=== PATIENT | female | born 1930 | race Caucasian/White ===

== ENCOUNTER 2017-08-09 12:22 | Emergency (ER) | payer MEDICARE, OTHER ==
[~2017-08-09] VITALS: Ht 152.4 cm; Wt 60.0 kg
[2017-08-09 12:27] VITALS: Ht 152.4 cm; Wt 60.0 kg
[2017-08-09] MEDS ORDERED: LIDOCAINE 1%/EPI 30 ML INJ INJ STA (12:50)
--- NOTE | 2017-08-09 12:50 | ERD ---
ER Documentation Chief Complaint Chief Complaint MECHANICAL FALL LAC TO HEAD HPI Patient is a 87-year-old female who presents after a witnessed ground-level mechanical fall at her longterm with injury to her head. There is no report of loss of consciousness or vomiting. There is no report of other injury. There is no report of any physical complaint prior to the episode. History is limited due to patient's underlying dementia. On further history from the longterm, the patient was noted to fall backwards in her chair while she was reaching to pet a dog. ROS All systems reviewed and are negative except as per history of present illness. Medications Home Meds Reported Medications Acetaminophen* (Acetaminophen*) 500 MG Extra Strength Tablet, 1000 MG PO QHS Y for PAIN AND OR ELEVATED TEMP, TAB 08/09/17 Trazodone Hcl* (Trazodone Hcl*) 50 Mg Tablet, 50 MG PO Q8 Y for SLEEP, #60 TAB 08/09/17 Memantine* (Namenda* XR) 28 Mg Cap.spr.24, 28 MG PO DAILY, #30 TAB 08/09/17 Loratadine* (Loratadine*) 10 Mg Tablet, 10 MG PO DAILY, #30 TAB 08/09/17 Levothyroxine Sodium* (Levoxyl*) 150 Mcg Tablet, 150 MCG PO WED,AND THU, #30 TAB 08/09/17 Levothyroxine Sodium* (Levoxyl*) 125 Mcg Tablet, 125 MCG PO MON,TUE,THUR,FRI,SAT , #30 TAB 08/09/17 Donepezil* (Donepezil*) 5 Mg Tablet, 5 MG PO QHS, #30 TAB 08/09/17 Cyanocobalamin* (Vitamin B12*) 500 Mcg Tab, 500 MCG PO DAILY, TAB 08/09/17 Cholecalciferol (Vitamin D3) (VITAMIN D-3) 2,000 Unit Capsule, 2000 UNIT PO DAILY, CAP 08/09/17 Celecoxib* (Celebrex*) 100 Mg Capsule, 100 MG PO BID, CAP 08/09/17 Salmeterol Xinaf/Fluticasone* (Advair*) 250-50 Diskus Inhaler, 1 INH INHALATION BID, #1 INHALER 08/09/17 Allergies Allergies: Coded Allergies: Sulfa (Sulfonamide Antibiotics) (Verified Allergy, Unknown, 11/26/17) PMhx/Soc Past medical history: Dementia, hypothyroidism Past surgical history: Unable to obtain Social history: Lives in longterm, reports occasional prior tobacco Medical and Surgical Hx: pt denies Medical Hx, pt denies Surgical Hx Hx Alcohol Use: No Hx Substance Use: No Hx Tobacco Use: No Smoking Status: Never smoker FmHx Noncontributory Physical Exam Vitals Vital Signs Date Time Temp Pulse Resp B/P Pulse Ox O2 Delivery O2 Flow Rate FiO2 08/09/17 12:27 98.0 72 16 141/79 95 Physical Exam Const: Alert, no acute distress Head: Atraumatic, Left occipital laceration, approximately 3 cm, linear. Soft tissue hematoma. Eyes: Normal Conjunctiva ENT: Normal External Ears, Nose and Mouth. Mucous membranes moist Neck: Full range of motion. No midline tenderness Resp: Clear to auscultation bilaterally, No wheezes, no rales Cardio: Regular rate and rhythm, no murmurs Abd: Soft, non tender, non distended. Normal bowel sounds Skin: No petechiae or rashes Back: No midline or flank tenderness Ext: No cyanosis, or edema, No deformity or pain with ranging of joints. Neur: Awake and alert, Cranial nerves II through XII intact bilaterally, strength and sensation full in 4 extremities. Psych: Normal Mood and Affect Results 24 hrs Current Medications Medications (Trade) Dose Ordered Sig/Bianca Route PRN Reason Start Time Stop Time Status Last Admin Dose Admin Lidocaine/ Epinephrine (Xylocaine 1%/ Epi (Pf)) 30 ml ONCE STAT INJ 08/09/17 12:50 08/09/17 12:51 DC Procedures/MDM Laceration Repair by me: Anesthesia: 1% lidocaine with epinephrine locally Location: Left occiput Foreign body: None detected after copious irrigation and exploration Technique: Juan A 4 Complexity: No subcutaneous sutures/mucosal repair/ edge excision Post Closure Length: 3 cm Patient's bleeding was easily controlled in the department and there is no indication of anemia. No evidence of neurologic injury, vascular injury, or foreign body. Patient is appropriate for outpatient follow up. MDM: Patient is an 87-year-old female who had a mechanical fall from a chair with trauma to her head. CT of the head shows no acute injury. CT of the cervical spine shows no fracture but does show significant degenerative disease. The patient has a normal neurological examination. She has no midline tenderness. There are no other signs of injury and tertiary survey. The patient is not on blood thinners. Laceration was irrigated with copious saline and repaired with juan a 4. Instructions given for staple removal in 7 days. Tetanus is up-to-date per daughter. Departure Diagnosis: Primary Impression: Scalp laceration Encounter type: initial encounter Qualified Code: S01.01XA - Laceration of scalp, initial encounter Condition: Stable MARILEE PLASCENCIA MD Aug 09, 2017 12:50
[2017-08-09] MEDS ORDERED: ADV25050 INHALATION (12:52)
[2017-08-09] MEDS ORDERED: CELE100C PO (12:52)
[2017-08-09] MEDS ORDERED: CYAN500T46 PO (12:53)
[2017-08-09] MEDS ORDERED: CHOL200073 PO (12:53)
[2017-08-09] MEDS ORDERED: DONE5TAB7 PO (12:54)
[2017-08-09] MEDS ORDERED: LEVO125T71 PO (12:55)
[2017-08-09] MEDS ORDERED: LEVO150T64 PO (12:55)
[2017-08-09] MEDS ORDERED: LORA10TA3 PO (12:56)
[2017-08-09] MEDS ORDERED: MEMA28CA PO (12:56)
[2017-08-09] MEDS ORDERED: TRAZ50TA18 PO (12:57)
[2017-08-09] MEDS ORDERED: ACET-141 PO (12:57)
--- NOTE | 2017-08-09 13:17 | RADRPT ---
PROCEDURE: XR Chest. CLINICAL INDICATION: Chest pain TECHNIQUE: Single frontal view of the chest was obtained. COMPARISON: None FINDINGS: The heart is within normal limits. The thoracic aorta is calcified. There are mild bilateral lower lobe linear atelectatic changes. The lungs are otherwise clear. There is no pleural effusion or pneumothorax. RPTAT: AA IMPRESSION: Mild bilateral lower lobe linear atelectatic changes. Calcified aorta consistent with atherosclerotic disease. .Christo Ellison MD, MD Date Time Electronically viewed and signed by .Christo Ellison MD, on 08/09/2017 13:17 .S/
--- NOTE | 2017-08-09 13:39 | RADRPT ---
PROCEDURE: CT brain without IV contrast. CLINICAL INDICATION: Headache/trauma. TECHNIQUE: CT examination of the brain was performed on a 64-slice multidetector scanner. The pat ient was examined without IV contrast. Sagittal and coronal reformatted images were made. The imag es were reviewed on a PACS workstation. DICOM images are available. Total radiation dose: Total CTDIvol: 44.9 mGy. Total DLP: 720 mGy-cm. One or more of the followin g dose reduction techniques were used: automated exposure control, adjustment of the mA and/or kV ac cording to patient size, or use of iterative reconstruction technique COMPARISON: None available. FINDINGS: There is mild cerebral atrophy. There is mild periventricular low density white matter changes, lik ekaterina microvascular ischemic changes. The south/white matter differentiation is well preserved. There is no other abnormal intra-axial high, low density lesion, suggesting tumor, infarct, bleeding, av malformation or inflammatory mass. No subdural or epidural hematoma. The visualized paranasal sinuses and mastoid air cells are clear. The orbits are unremarkable. The calvarium is intact. There is mild left parietal scalp swelling . IMPRESSION: 1. Mild cerebral atrophy. 2. Mild periventricular low density white matter changes, likely microvascular ischemic changes. RPTAT: GG .Jack Aquino MD, MD Date Time Electronically viewed and signed by .Jack Aquino MD, on 08/09/2017 13:39 .Y/
--- NOTE | 2017-08-09 14:04 | RADRPT ---
PROCEDURE: CT cervical spine without contrast. CLINICAL INDICATION: Neck trauma/injury, fall TECHNIQUE: CT of the cervical spine without contrast was performed on a multidetector CT scanner, w ith multiplanar reformats. One or more of the following dose reduction techniques were used: Automa aden exposure control, adjustment in mA and / or kV according to patient size, use of iterative recon structive technique. CTDIvol = 22 mGy and DLP = 520 mGy-cm. DICOM images are available. COMPARISON: None available. FINDINGS: There is generalized osteopenia. No acute fracture or dislocation is identified. There is a chronic corticated defect in the posterior arch of C1 which may be developmental, versus post-traumatic. Th ere is reversal of the lordosis of the upper - mid cervical spine. Trace anterolisthesis at C2-3 an d C7-T1, and trace retrolisthesis at C4-5 are seen. The vertebral bodies are maintained in height. There are atlantoaxial joint degenerative changes. There are multilevel anterior osteophytes. The re is disc space narrowing, severe at C4-5, moderate to severe at C3-4, mild-moderate at C2-3 , C5-6 and C6-7. Additional findings by levels: C2-3: Posterior disk/osteophyte and ligamentum flavum hypertrophy. Mild to moderate central canal st enosis. Uncovertebral osteophytes and facet arthropathy with severe right foraminal narrowing. C3-4: Posterior disk/osteophyte with mild central canal stenosis. Uncovertebral osteophytes and fa cet arthropathy with severe right, mild-moderate left foraminal narrowing. C4-5: Posterior disk/osteophyte with moderate - severe central canal stenosis. Uncovertebral osteo phytes and facet arthropathy with severe bilateral foraminal narrowing. C5-6: Posterior disk/osteophyte with mild - moderate central canal stenosis. Uncovertebral osteoph ytes and facet arthropathy with moderate - severe bilateral foraminal narrowing. C6-7: Posterior disk/osteophyte with mild - moderate central canal stenosis. Uncovertebral osteop hytes and facet arthropathy with mild - moderate bilateral foraminal narrowing C7-T1: Facet arthropathy. No acquired central canal stenosis identified. IMPRESSION: 1. No acute fracture/dislocation identified. 2. Chronic corticated defect at the posterior arch of C1 which may be developmental versus post-tra umatic. 3. Cervical spondylosis/degenerative enthesopathy as described above, with reversal of the cervical lordosis. 4. Central canal stenosis, moderate - severe at C4-5, mild - moderate at C2-3, C5-6 and C6-7, mild at C3-4. 5. Significant multilevel foraminal narrowing detailed above. 6. Osteopenia. RPTAT: HH .Mateus Rain MD, Date Time Electronically viewed and signed by .Mateus Rain MD, MD on 08/09/2017 14:04 .O/
== END 2017-08-09 15:59 | disposition home or self-care (01) ==
LOC: E/R 12:22
DX: S01.01XA Laceration without foreign body of scalp, initial encounter (principal); E03.9 Hypothyroidism, unspecified; W18.39XA Other fall on same level, initial encounter; Y92.9 Unspecified place or not applicable
CPT/HCPCS: 70450; 71010; 72125

== ENCOUNTER 2018-09-25 08:41 | Inpatient (IN) | payer MEDICARE, OTHER ==
[~2018-09-25] VITALS: Ht 165.1 cm; Wt 75.9 kg
[~2018-09-25 08:41] MED LIST: ACET-141 PO; ADV25050 INHALATION; CELE100C PO; CHOL200073 PO; CYAN500T46 PO; DONE5TAB7 PO; LEVO125T71 PO; LEVO150T64 PO; LORA10TA3 PO; MEMA28CA PO; TRAZ-111 PO
[2018-09-25 08:46] VITALS: Ht 165.1 cm; Wt 75.9 kg
[2018-09-25] MEDS ORDERED: CEFEPIME 2GM/50 ML (PMX) 50 ML IVPB STA (08:47)
[2018-09-25] MEDS ORDERED: SODIUM CHLORIDE 0.9% 1L BAG IV* STA (08:47)
[2018-09-25] MEDS ORDERED: ALBUTEROL 0.5% (NEB) 2.5 MG/0.5 ML AMP INH STA (08:47)
[2018-09-25] MEDS ORDERED: IPRATROPIUM (NEB) 0.5 MG/2.5 ML AMP INH STA (08:47)
[2018-09-25] MEDS ORDERED: METHYLPREDNISOLONE 125 MG INJ IV STA (08:47)
[2018-09-25] MEDS ORDERED: VANCOMYCIN 1 GM (PMX) 250 ML IVPB ONE (09:00)
[2018-09-25] MEDS ORDERED: LORA10TA3 PO (10:22)
[2018-09-25] MEDS ORDERED: CELE100C PO (10:22)
[2018-09-25] MEDS ORDERED: LORA0.5T PO (10:23)
[2018-09-25] MEDS ORDERED: MULTI PO (10:23)
[2018-09-25] MEDS ORDERED: ACET325T45 PO (10:24)
[2018-09-25] MEDS ORDERED: ASPI-817 PO (10:26)
[2018-09-25] MEDS ORDERED: LEVO150T7 PO (10:26)
[2018-09-25] MEDS ORDERED: LEVO125T7 PO (10:26)
[2018-09-25] MEDS ORDERED: TRAZ-111 PO (10:27)
[2018-09-25] MEDS ORDERED: ACETAMINOPHEN 325 MG TAB PO PRN (11:30)
[2018-09-25] MEDS ORDERED: ONDANSETRON 4 MG INJ IV PRN ×2 (11:30→12:30)
--- NOTE | 2018-09-25 11:43 | ERD ---
ER Documentation Chief Complaint Chief Complaint SOB, Hypoxic wheezing since this morning HPI This is an 88-year-old female who presented to the emergency department by EMS from [facility] with a known history of COPD, hypertension, hypothyroidism. The patient is a DO NOT RESUSCITATE with comfort measures only. This morning upon awakening the patient developed severe difficulty breathing with wheezing. There was no emesis. EMS administered 2.5 mg of albuterol the patient was hypoxic at roughly 89%. This had improved her symptoms. No further history is available. ROS All systems reviewed and are negative except as per history of present illness. Medications Home Meds Reported Medications Trazodone Hcl* (Trazodone Hcl*) 50 Mg Tablet, 25 MG PO QHS, #30 TAB 09/25/18 Aspirin* (Aspirin* EC) 81 Mg Tablet.dr, 81 MG PO DAILY, TAB 09/25/18 Levothyroxine Sodium* (Levothyroxine Sodium*) 150 Mcg Tablet, 150 MCG PO BEFORE BREAKFAST, #30 TAB Q THU-Thu09/25/18 Levothyroxine Sodium* (Levothyroxine Sodium*) 125 Mcg Tablet, 125 MCG PO BEFORE BREAKFAST, #30 TAB Q [id number] 09/25/18 Acetaminophen* (Acetaminophen*) 325 Mg Tablet, 325 MG PO Q6H PRN for PAIN AND OR ELEVATED TEMP, #30 TAB 09/25/18 Multivitamins* (Theragran*) 1 Tab Tab, 1 TAB PO DAILY, TAB 09/25/18 Lorazepam* (Lorazepam*) 0.5 Mg Tablet, 0.25 MG PO HS PRN for ANXIETY, TAB 09/25/18 Loratadine* (Loratadine*) 10 Mg Tablet, 10 MG PO DAILY, #30 TAB 09/25/18 Celecoxib* (Celebrex*) 100 Mg Capsule, 100 MG PO BID, CAP 09/25/18 Discontinued Reported Medications Acetaminophen* (Acetaminophen*) 500 MG Extra Strength Tablet, 1000 MG PO QHS PRN for PAIN AND OR ELEVATED TEMP, TAB 08/09/17 Trazodone Hcl* (Trazodone Hcl*) 50 Mg Tablet, 50 MG PO Q8 PRN for SLEEP, #60 TAB 08/09/17 Memantine* (Namenda* XR) 28 Mg Cap.spr.24, 28 MG PO DAILY, #30 TAB 08/09/17 Loratadine* (Loratadine*) 10 Mg Tablet, 10 MG PO DAILY, #30 TAB 08/09/17 Levothyroxine Sodium* (Levoxyl*) 150 Mcg Tablet, 150 MCG PO WED,AND SUN, #30 TAB 08/09/17 Levothyroxine Sodium* (Levoxyl*) 125 Mcg Tablet, 125 MCG PO MON,TUE,THUR, FRI,SAT, #30 TAB 08/09/17 Donepezil* (Donepezil*) 5 Mg Tablet, 5 MG PO QHS, #30 TAB 08/09/17 Cyanocobalamin* (Vitamin B12*) 500 Mcg Tab, 500 MCG PO DAILY, TAB 08/09/17 Cholecalciferol (Vitamin D3) (VITAMIN D-3) 2,000 Unit Capsule, 2000 UNIT PO DAILY, CAP 08/09/17 Celecoxib* (Celebrex*) 100 Mg Capsule, 100 MG PO BID, CAP 08/09/17 Salmeterol Xinaf/Fluticasone* (Advair*) 250-50 Diskus Inhaler, 1 INH INHALATION BID, #1 INHALER 08/09/17 Allergies Allergies: Coded Allergies: Sulfa (Sulfonamide Antibiotics) (Verified Allergy, Unknown, 09/25/18) PMhx/Soc History of Surgery: Yes (Lt Mastectomy) Hx Neurological Disorder: Yes (Dementia, CVA) Hx Cardiac Disorders: Yes (HTN) Hx Miscellaneous Medical Probl: Yes (DM, GERD) Hx Alcohol Use: No Hx Substance Use: No Hx Tobacco Use: No Smoking Status: Never smoker Physical Exam Vitals Vital Signs Date Temp Pulse Resp B/P (MAP) Pulse Ox O2 O2 Flow FiO2 Time Delivery Rate 09/25/18 106 24 100 Simple 6.0 08:56 Mask 09/25/18 Simple 6 08:56 Mask 09/25/18 105 21 161/99 99 Mask 6.0 08:53 (119) 09/25/18 98.8 101 22 161/99 100 08:46 (119) Physical Exam Constitutional:Well-developed. Well-nourished. Patient in severe respiratory distress HEENT:Normocephalic. Atraumatic.Pupils were equal round reactive to light. Moist mucous membranes.No tonsillar exudates. Neck: No nuchal rigidity. No lymphadenopathy. No posterior cervical spine tenderness or step-offs. Respiratory: Tachypneic. Using accessory muscles of respiration. Wheezing on end auscultation bilaterally Cardiovascular: Regular rate regular rhythm.No murmurs. No rubs were appre ciated.S1, S2 normal. Distal pulses are palpable 2+ bilaterally. GI: Abdomen was soft. Nontender. Non Distended. No pulsatile abdominal masses or bruits. No rebound. No guarding. Bowel sounds were present and normal. Muscle skeletal: Full range of motion of both the upper extremities. Patient does not move lower extremities against gravity..No assymetrical calf tenderness or swelling. Skin: No petechia, no purpura. No lesions on the palms or the soles of the feet. No maculopapular rash. NEURO: Patient was alert, awake, orientated to person but not to place or time. Patient does not follow verbal command. Gait not observed. Result Diagram: 09/25/1892309/25/1824 Results 24 hrs Laboratory Tests Test 09/25/18 09:24 09/25/18 09:37 White Blood Count 15.8 10^3/ul Red Blood Count 4.49 10^6/ul Hemoglobin 13.4 g/dl Hematocrit 42.3 % Mean Corpuscular Volume 94.2 fl Mean Corpuscular Hemoglobin 29.8 pg Mean Corpuscular Hemoglobin Concent 31.7 g/dl Red Cell Distribution Width 13.7 % Platelet Count 277 10^3/UL Mean Platelet Volume 11.4 fl Immature Granulocytes % 1.000 % Neutrophils % 79.3 % Lymphocytes % 13.1 % Monocytes % 6.1 % Eosinophils % 0.1 % Basophils % 0.4 % Nucleated Red Blood Cells % 0.0 /100WBC Immature Granulocytes # 0.160 10^3/ul Neutrophils # 12.5 10^3/ul Lymphocytes # 2.1 10^3/ul Monocytes # 1.0 10^3/ul Eosinophils # 0.0 10^3/ul Basophils # 0.1 10^3/ul Nucleated Red Blood Cells # 0.0 10^3/ul Prothrombin Time 13.1 Sec Prothrombin Time Ratio 1.0 INR International Normalized Ratio 0.98 Activated Partial Thromboplast Time 29.1 Sec Sodium Level 140 mmol/L Potassium Level 4.1 mmol/L Chloride Level 101 mmol/L Carbon Dioxide Level 35 mmol/L Anion Gap 4 Blood Urea Nitrogen 16 mg/dl Creatinine 0.83 mg/dl Est Glomerular Filtrat Rate mL/min mL/min Glucose Level 152 mg/dl Calcium Level 10.2 mg/dl Total Bilirubin 0.4 mg/dl Direct Bilirubin 0.00 mg/dl Indirect Bilirubin 0.4 mg/dl Aspartate Amino Transf (AST/SGOT) 30 IU/L Alanine Aminotransferase (ALT/SGPT) 21 IU/L Alkaline Phosphatase 139 IU/L Troponin I 0.031 ng/ml Total Protein 7.8 g/dl Albumin 3.8 g/dl Globulin 4.00 g/dl Albumin/Globulin Ratio 0.95 Amylase Level 36 U/L Lipase 12 U/L POC Venous Lactate 1.7 mmol/L Current Medications Medications Dose Sig/Bianca Start Time Status Last (Trade) Ordered Route PRN Stop Time Admin Dose Reason Admin Sodium 2,400 ml BOLUS OVER 2 09/25/18 DC 09/25/18 Chloride HOURS STAT 08:47 09:45 (NS) IV* 09/25/18 08:52 Cefepime HCl 50 ml @ ONCE STAT 09/25/18 DC 09/25/18 100 mls/hr IVPB 08:47 09:44 09/25/18 09:16 Vancomycin 250 ml @ ONCE ONCE 09/25/18 DC 09/25/18 HCl 125 mls/hr IVPB 09:00 09:45 09/25/18 10:59 Albuterol 10 mg ONCE STAT 09/25/18 DC 09/25/18 (Proventil INH 08:47 08:55 0.5% (Neb)) 09/25/18 08:52 Ipratropium 1 mg ONCE STAT 09/25/18 DC 09/25/18 Deary INH 08:47 08:56 (Atrovent 09/25/18 08:52 0.02% (Neb)) 125 mg ONCE STAT 09/25/18 DC 09/25/18 Methylprednis IV 08:47 09:45 olone Sodium 09/25/18 08:52 Succinate (Solu-Medrol) Ondansetron 4 mg BRIDGE ORDER 09/25/18 HCl (Zofran PRN IV 11:30 Inj) NAUSEA AND/OR 09/26/18 11:29 VOMITING 650 mg ER BRIDGE 09/25/18 Acetaminophen PRN PO MILD 11:30 (Tylenol PAIN(1-3)OR 09/26/18 11:29 Tab) ELEVATED TEMP Procedures/MDM The patient presented to the emergency department with dyspnea. My differential diagnosis included but was not limited to upper airway obstruction, CHF, pulmonary embolism, cardiac ischemia, pneumonia, pneumothorax, anemia, drug overdose, pulmonary edema, COPD or asthma. The patient was admitted placed on continuous albuterol Atrovent 125 mg of Solu- Medrol. Her symptoms had significantly improved. She still had wheezing bilaterally but was not using accessory muscles of respiration. 12 Lead EKG tracing ordered and reviewed by myself showed: Sinus tachycardia 101 bpm and no arrhythmia. LA interval normal. QRS duration normal. No ST segment elevation No ST segment depression. No changes consistent with acute ischemia. The patient with leukocytosis with white blood count of 15.8. There is no other severe electrolyte abnormalities. With the patient initially arrived I did feel that the patient was going to meet sepsis criteria however her lactic acid was normal. I had already administered antibiotics which included vancomycin and cefepime. Blood cultures and urine cultures have been obtained prior to arrival. An indwelling [place] catheter was placed as the patient is bedbound and will require admission. The patient was admitted in serious condition to the spitalist. She will go to the medical surgical floor given that she is a DO NOT RESUSCITATE with comfort measures only Critical Care: Time: 40 minutes Treatments/Evaluations: Close monitoring and treatment of unstable vital signs, cardiorespiratory, and neurologic status, while maintaining tight balance of fluid, respiratory, and cardiac interventions. Time does not include performing any of the above billable procedures. Departure Diagnosis: Primary Impression: COPD exacerbation Condition: Serious CARLINE MELO MD Sep 25, 2018 11:39
[2018-09-25 12:18] VITALS: BP 143/67; PULSE 102; RESP 16
[2018-09-25] MEDS ORDERED: NACL 0.9% 3 ML SYG IV SCH (12:30)
[2018-09-25] MEDS: SOD CHLORIDE 0.9% 1,000 ML IV SCH (13:09)
--- NOTE | 2018-09-25 13:45 | HP ---
Date/Time of Note Date/Time of Note DATE: 09/25/18 TIME: 13:45 Assessment/Plan VTE Prophylaxis Pharmacological prophylaxis: LMWH Lines/Catheters IV Catheter Type (from [facility]): Peripheral IV Assessment/Plan Hospital Course 88-year-old female with comorbidities including COPD, dementia, and hypothyroidism, who was brought in from an assisted living facility because of dyspnea with evidence of underlying sepsis and acute respiratory failure, who will be admitted to inpatient setting for further treatment and evaluation. 1. Sepsis with leukocytosis and tachycardia, present on admission secondary to underlying urinary tract infection and suspected tracheobronchitis. -Start empiric antibiotics including coverage for anaerobes since there is likelihood of aspiration pneumonitis. -Send samayoa cultures. -Judicious use of IV fluids. 2. Acute respiratory failure. -Hypoxic. -Continue inhaled bronchodilators. -Continue tapering dose of steroids. -Continue supplemental oxygen. 3. Suspected urinary tract infection. -Continue empiric antimicrobials -Await final cultures. 4. Dementia. -Frequent reorientation. -Speech therapy for swallow evaluation before safely feeding the patient. 6. Hypothyroidism. -Resume Synthroid. -Obtain thyroid studies. Plan: The patient will be admitted to inpatient medical surgical floor. The patient will be kept n.p.o. until speech therapy evaluation.. The patient will be started on DVT prophylaxis and gastrointestinal prophylaxis (patient on steroids). The patient will remain a DNR. Activities will be bedrest. The rest of the patient's management will be based on the clinical course and the results of diagnostic studies. Based on the patient's clinical presentation, she most probably requires at leas t 2 midnights' stay for further management and evaluation of her clinical presentation. The patient was seen in collaboration with Dr. Bean. Result Diagram: 09/25/1892309/25/18923 Results 24hrs Laboratory Tests Test 09/25/18 09:24 09/25/18 09:37 09/25/18 11:34 White Blood Count 15.8 H Red Blood Count 4.49 Hemoglobin 13.4 Hematocrit 42.3 Mean Corpuscular Volume 94.2 Mean Corpuscular Hemoglobin 29.8 Mean Corpuscular Hemoglobin Concent 31.7 L Red Cell Distribution Width 13.7 Platelet Count 277 Mean Platelet Volume 11.4 H Immature Granulocytes % 1.000 H Neutrophils % 79.3 H Lymphocytes % 13.1 L Monocytes % 6.1 Eosinophils % 0.1 Basophils % 0.4 Nucleated Red Blood Cells % 0.0 Immature Granulocytes # 0.160 H Neutrophils # 12.5 H Lymphocytes # 2.1 Monocytes # 1.0 H Eosinophils # 0.0 Basophils # 0.1 Nucleated Red Blood Cells # 0.0 Prothrombin Time 13.1 Prothrombin Time Ratio 1.0 INR International Normalized Ratio 0.98 Activated Partial Thromboplast Time 29.1 Sodium Level 140 Potassium Level 4.1 Chloride Level 101 Carbon Dioxide Level 35 H Anion Gap 4 L Blood Urea Nitrogen 16 Creatinine 0.83 Est Glomerular Filtrat Rate mL/min Glucose Level 152 Calcium Level 10.2 Total Bilirubin 0.4 Direct Bilirubin 0.00 Indirect Bilirubin 0.4 Aspartate Amino Transf (AST/SGOT) 30 Alanine Aminotransferase (ALT/SGPT) 21 Alkaline Phosphatase 139 H Troponin I 0.031 Total Protein 7.8 Albumin 3.8 Globulin 4.00 H Albumin/Globulin Ratio 0.95 Amylase Level 36 Lipase 12 L POC Venous Lactate 1.7 Urine Color [place] Urine Clarity CLOUDY A Urine pH 5.0 Urine Specific [place] 1.026 Urine Ketones NEGATIVE Urine Nitrite POSITIVE A Urine Bilirubin NEGATIVE Urine Urobilinogen 1+ H Urine Leukocyte Esterase TRACE A Urine Microscopic RBC 3 Urine Microscopic WBC 61 H Urine Squamous Epithelial Cells FEW Urine Bacteria FEW A Urine Hyaline Casts FEW A Urine Granular Casts FEW A Urine Mucus MANY A Urine Hemoglobin NEGATIVE Urine Glucose NEGATIVE Urine Total Protein 2+ H HPI/ROS Admit Date/Time Admit Date/Time Sep 25, 2018 at 11:21 Hx of Present Illness Reason for admission: Dyspnea, hypoxia. This is a 88-year-old female who is a resident of a assisted living facility with known history of COPD, hypothyroidism, and dementia who was brought in by paramedics to the emergency room because of dyspnea. The patient is a DO NOT RESUSCITATE. Details of the patient's HPI was obtained by reading the patient's documents from the assisted living facility as well as the ER physician's documents. In the emergency room, the patient was noticed to have leukocytosis. The patient had no lactic acidosis. The patient's urinalysis was positive with a positive nitrate and positive leukocyte esterase with urine microscopic WBC of 61. The patient's chest x-ray was negative for any acute findings. The patient was treated with IV cefepime and vancomycin along with IV Solu-Medrol in the emergency room. ROS Subjective hx not possible: other (Patient confused.) PMH/Family/Social Past Medical History 1. Hypothyroidism. 2. Dementia. 3. COPD. Medications Current Medications Acetaminophen (Tylenol Tab) 650 mg ER BRIDGE PRN PO MILD PAIN(1-3)OR ELEVATED TEMP; Start 09/25/18 at 11:30; Stop 09/26/18 at 11:29 Sodium Chloride 1,000 ml @ 60 mls/hr [id number] IV Last administered on 09/25/18at 13:09; Admin Dose 60 MLS/HR; Start 09/25/18 at 12:25 IV Flush (NS 3 ml) 3 ml PER PROTOCOL IV ; Start 09/25/18 at 12:30 Ondansetron HCl (Zofran Inj) 4 mg Q6H PRN IV NAUSEA AND/OR VOMITING; Start 09/25/18 at 12:30 Coded Allergies: Sulfa (Sulfonamide Antibiotics) (Verified Allergy, Unknown, 09/25/18) Past Surgical History Unable to obtain details of surgical history. Social History The patient currently lives in a [id number] living facility. Alcohol Use: none Smoking Status: Former smoker Drug Use: none Exam/Review of Systems Vital Signs Vitals Vital Signs Date Temp Pulse Resp B/P (MAP) Pulse Ox O2 O2 Flow FiO2 Time Delivery Rate 09/25/18 98.8 102 16 143/67 93 Nasal 3.0 12:18 (92) Cannula Exam Exam General: Adequately build 88 year-old female lying in bed in mild respiratory distress. HEENT: Normocephalic, atraumatic. Eyes: Anicteric sclerae, conjunctivae clear. ENT: Nasal septum midline, oral mucosa is dry. Neck supple. Respiratory: Bilaterally diminished breath sounds. Use of accessory muscles of respiration. Bilateral expiratory wheezing. Cardiovascular: S1, S2 heard. Regular rate and rhythm. Abdomen: Soft, nontender, and nondistended. Bowel sounds positive in all 4 quadrants. Genitourinary: [place] catheter in place draining straw-colored urine. Extremities: No cyanosis, no clubbing, no edema. Peripheral pulses palpable. Neurologic: The patient is awake and alert. Oriented to self. Does not follow commands. Additional Comments CXR IMPRESSION: Mild bibasilar atelectatic changes. Calcified aorta consistent with atherosclerotic disease. ROXANNE GUNN PROFESSOR OF PHILOSOPHY Sep 25, 2018 13:45
[2018-09-25] MEDS ORDERED: VANCOMYCIN IV PER PHARMACY XX SCH (14:00)
[2018-09-25] MEDS ORDERED: hydrALAzine 20 MG INJ IV PRN (14:00)
[2018-09-25] MEDS: METHYLPREDNISOLONE 125 MG INJ IV SCH ×2 (15:08→22:23)
[2018-09-25] MEDS ORDERED: VANCOMYCIN 500 MG (PMX) 100 ML IVPB SCH (15:30)
[2018-09-25] MEDS: PIPER-TAZO 3.375 GM IV (PMX) 100 ML IVPB SCH (17:38)
[2018-09-25] MEDS ORDERED: HALOPERIDOL 5 MG INJ IM ONE ×2 (20:00→22:00)
[2018-09-25 20:38] VITALS: BP 170/77; PULSE 80; RESP 18
[2018-09-25] MEDS: ALBUTEROL/IPRATROPIUM (NEB) 3 ML AMP HHN SCH (20:42)
[2018-09-25 21:55] VITALS: BP 141/78; PULSE 80; RESP 18
[2018-09-25] MEDS ORDERED: LORAZEPAM 2 MG INJ IV ONE (22:00)
[2018-09-26] MEDS: PIPER-TAZO 3.375 GM IV (PMX) 100 ML IVPB SCH ×2 (00:10→05:47)
[2018-09-26 01:45] VITALS: BP 155/70; PULSE 67; RESP 18
[2018-09-26] MEDS: SOD CHLORIDE 0.9% 1,000 ML IV SCH (05:47)
[2018-09-26] MEDS: METHYLPREDNISOLONE 125 MG INJ IV SCH ×3 (05:47→21:14)
[2018-09-26] MEDS: PANTOPRAZOLE 40 MG INJ IV SCH (05:47)
[2018-09-26] MEDS ORDERED: LEVOTHYROXINE 125 MCG TAB PO SCH (07:00)
[2018-09-26 07:43] VITALS: BP 177/84; PULSE 72; RESP 18
[2018-09-26 08:48] VITALS: BP 133/65
[2018-09-26] MEDS: LORATADINE 10 MG TAB PO SCH (09:00)
[2018-09-26] MEDS: ENOXAPARIN 40 MG/0.4 ML SYG SC SCH (09:00)
[2018-09-26] MEDS: MULTIVITAMINS THERAPEUTIC TAB PO SCH (09:00)
[2018-09-26] MEDS: ASPIRIN (EC) 81 MG TAB PO SCH (09:00)
[2018-09-26] MEDS: ALBUTEROL/IPRATROPIUM (NEB) 3 ML AMP HHN SCH ×3 (09:08→21:20)
--- NOTE | 2018-09-26 10:48 | PN ---
Date/Time of Note Date/Time of Note DATE: 09/26/18 TIME: 10:41 Assessment/Plan VTE Prophylaxis Risk score (from Ns)>0 risk: 4 SCD applied (from [facility]): No SCD contraindicated: patient refusal Pharmacological prophylaxis: LMWH (Patient refusing.) Lines/Catheters IV Catheter Type (from [facility]): Peripheral IV Urinary Cath still in place: Yes Reason Cath still needed: other (indicate) Assessment/Plan Hospital Course SUBJECTIVE: The patient has been refusing all of her oral medications. The patient had a one-to-one environmental safety specialist last night because of confusion and impulsive behavior. The patient was given 2 doses of Haldol and 1 dose of Ativan last night because of agitation. OBJECTIVE: Physical Exam General: Adequately build 88 year-old female lying in bed in mild respiratory distress. HEENT: Normocephalic, atraumatic. Eyes: Anicteric sclerae, conjunctivae clear. ENT: Nasal septum midline, oral mucosa is dry. Neck supple. Respiratory: Bilaterally diminished breath sounds. Use of accessory muscles of respiration. Bilateral expiratory wheezing. Cardiovascular: S1, S2 heard. Regular rate and rhythm. Abdomen: Soft, nontender, and nondistended. Bowel sounds positive in all 4 quadrants. Genitourinary: [place] catheter in place draining straw-colored urine. Extremities: No cyanosis, no clubbing, no edema. Peripheral pulses palpable. Neurologic: The patient is awake and alert. Oriented to self. Does not follow commands. Labs & Vitals per chart ASSESSMENT & PLAN 88-year-old female with comorbidities including COPD, dementia, and hypothyroidism, who was brought in from an assisted living facility because of dyspnea with evidence of underlying sepsis and acute respiratory failure, who will be admitted to inpatient setting for further treatment and evaluation. 1. Sepsis with leukocytosis and tachycardia, present on admission secondary to underlying suspected urinary tract infection and suspected tracheobronchitis. -Was started on antibiotics including coverage for anaerobes since there is likelihood of aspiration pneumonitis. -Pancultures negative so far. -Judicious use of IV fluids. 2. Acute respiratory failure. -Hypoxic. -Probably secondary to underlying COPD exacerbation. -Continue inhaled bronchodilators. -Continue tapering dose of steroids. -Continue supplemental oxygen. 3. Suspected urinary tract infection. -Urine cultures negative. 4. Dementia. -Frequent reorientation. -PRN anxiolytics/antipsychotics. 5. Hypothyroidism. -Continue Synthroid. -Decrease the dosing. 6. Dysphagia. -Status post placed therapy evaluation. -Aspiration precautions. -Pured diet. 7. Fluids, electrolytes, and nutrition. -Pured diet. 8. DVT prophylaxis. -Subcutaneous Lovenox (patient refusing). 9. Plan. -De-escalate antimicrobials. -Continue inhaled bronchodilators and tapering dose of steroids. -Await clinical improvement. -PT evaluation. The patient was seen in collaboration with Dr. Bean. Result Diagram: 09/26/184 09/26/18 0424 Results 24hrs Laboratory Tests Test 09/25/18 11:34 09/25/18 13:58 09/25/18 14:00 09/26/18 04:24 Urine Color [place] Urine Clarity CLOUDY A Urine pH 5.0 Urine Specific 1.026 [place] Urine Ketones NEGATIVE Urine Nitrite POSITIVE A Urine Bilirubin NEGATIVE Urine Urobilinogen 1+ H Urine Leukocyte TRACE A Esterase Urine Microscopic 3 RBC Urine Microscopic 61 H WBC Urine Squamous FEW Epithelial Cells Urine Bacteria FEW A Urine Hyaline Casts FEW A Urine Granular Casts FEW A Urine Mucus MANY A Urine Hemoglobin NEGATIVE Urine Glucose NEGATIVE Urine Total Protein 2+ H B-Type Natriuretic 4900 H Peptide Thyroid Stimulating 0.769 Hormone (TSH) Free Thyroxine 2.01 H Lactic Acid Level 2.5 *H 1.5 White Blood Count 13.2 H Red Blood Count 3.84 L Hemoglobin 11.4 L Hematocrit 37.0 Mean Corpuscular 96.4 Volume Mean Corpuscular 29.7 Hemoglobin Mean Corpuscular 30.8 L Hemoglobin Concent Red Cell 14.1 Distribution Width Platelet Count 202 # Mean Platelet Volume 12.7 H Immature 1.400 H Granulocytes % Neutrophils % 82.4 H Lymphocytes % 12.8 L Monocytes % 3.2 Eosinophils % 0.0 Basophils % 0.2 Nucleated Red Blood 0.0 Cells % Immature 0.180 H Granulocytes # Neutrophils # 10.9 H Lymphocytes # 1.7 Monocytes # 0.4 Eosinophils # 0.0 Basophils # 0.0 Nucleated Red Blood 0.0 Cells # Sodium Level 145 H Potassium Level 4.6 Chloride Level 108 Carbon Dioxide Level 31 Anion Gap 6 Blood Urea Nitrogen 17 Creatinine 0.80 Est Glomerular Filtrat Rate mL/min Glucose Level 138 Calcium Level 10.0 Phosphorus Level 4.6 Magnesium Level 2.3 Total Bilirubin 0.2 Direct Bilirubin 0.00 Indirect Bilirubin 0.2 Aspartate Amino 28 Transf (AST/SGOT) Alanine 24 Aminotransferase (AL T/SGPT) Alkaline Phosphatase 97 Total Protein 6.2 # Albumin 3.1 L Globulin 3.10 Albumin/Globulin 1.00 Ratio Exam/Review of Systems Vital Signs Vitals Vital Signs Date Temp Pulse Resp B/P (MAP) Pulse Ox O2 O2 Flow FiO2 Time Delivery Rate 09/26/18 103 28 92 Nasal 3.0 09:11 Cannula 09/26/18 133/65 08:48 (87) 09/26/18 97.7 07:43 Intake and Output 09/25/18 09/25/18 09/26/18 1515:00 23:00 07:00 IntakeIntake Total 250 ml 420 ml 980 ml OutputOutput Total 350 ml BalanceBalance 250 ml 420 ml 630 ml Medications Medications Current Medications Acetaminophen (Tylenol Tab) 650 mg ER BRIDGE PRN PO MILD PAIN(1-3)OR ELEVATED TEMP; Start 09/25/18 at 11:30; Stop 09/26/18 at 11:29 Sodium Chloride 1,000 ml @ 60 mls/hr [id number] IV Last administered on 09/26/18at 05:47; Admin Dose 60 MLS/HR; Start 09/25/18 at 12:25 IV Flush (NS 3 ml) 3 ml PER PROTOCOL IV ; Start 09/25/18 at 12:30 Ondansetron HCl (Zofran Inj) 4 mg Q6H PRN IV NAUSEA AND/OR VOMITING; Start 09/25/18 at 12:30 Piperacillin Sod/ Tazobactam Sod 100 ml @ 200 mls/hr Q6 IVPB Last administered on 09/26/18at 05:47; Admin Dose 200 MLS/HR; Start 09/25/18 at 18:00 Vancomycin HCl (Vanco Iv Per Pharmacy) VANCOMYCIN PER PHARMACY PER PROTOCOL XX ; Start 09/25/18 at 14:00 Hydralazine HCl (Apresoline) 10 mg Q6H PRN IV SBP>160 Last administered on 09/26/18at 07:59; Admin Dose 10 MG; Start 09/25/18 at 14:00 Aspirin (Halfprin) 81 mg DAILY PO ; Start 09/26/18 at 09:00 Levothyroxine Sodium (Synthroid) 125 mcg BEFORE BREAKFAST PO ; Start 09/26/18 at 07:00 Loratadine (Claritin) 10 mg DAILY PO ; Start 09/26/18 at 09:00 Multivitamins Therapeutic (Theragran) 1 tab DAILY PO ; Start 09/26/18 at 09:00 Methylprednisolone Sodium Succinate (Solu-Medrol) 60 mg Q8 IV Last administered on 09/26/18at 05:47; Admin Dose 60 MG; Start 09/25/18 at 14:00 Pantoprazole (Protonix Iv) 40 mg DAILY@06 IV Last administered on 09/26/18at 05:47; Admin Dose 40 MG; Start 09/26/18 at 06:00 Enoxaparin Sodium (Lovenox) 40 mg DAILY SC ; Start 09/26/18 at 09:00 Albuterol/ Ipratropium (Duoneb) 3 ml Q6HWA RESP THERAPY HHN Last administered on 09/26/18at 09:08; Admin Dose 3 ML; Start 09/25/18 at 20:00 Albuterol/ Ipratropium (Duoneb) 3 ml Q2H RESP THERAPY PRN HHN SHORTNESS OF BREATH; Start 09/25/18 at 14:30 Vancomycin HCl 1.25 gm/Sodium Chloride 250 ml @ 83.333 mls/ hr Q24H IVPB ; Start 09/26/18 at 15:00 ROXANNE GUNN NP Sep 26, 2018 10:48
[2018-09-26] MEDS: CEFTRIAXONE 1 GM/50 ML (PMX) 50 ML IVPB SCH (11:22)
[2018-09-26] MEDS ORDERED: AZITHROMYCIN 500MG/NS (PMX) 250 ML IVPB SCH (12:00)
[2018-09-26 13:08] VITALS: BP 126/68; PULSE 94; RESP 18
[2018-09-26] MEDS: OLANZAPINE 2.5 MG TAB PO SCH (13:20)
[2018-09-26 14:14] VITALS: BP 118/55; PULSE 100; RESP 20
[2018-09-26] MEDS ORDERED: VANCOMYCIN HCL 1.25 GM in SOD CHLORIDE 0.9% 250 ML IVPB SCH (15:00)
[2018-09-26 20:02] VITALS: BP 139/77; PULSE 92; RESP 19
[2018-09-27] MEDS ORDERED: LORAZEPAM 2 MG INJ IV ONE (01:30)
[2018-09-27] MEDS ORDERED: HALOPERIDOL 5 MG INJ IM ONE (01:30)
[2018-09-27 02:10] VITALS: BP 152/74; PULSE 78; RESP 18
[2018-09-27 02:17] VITALS: BP 158/78; PULSE 80; RESP 17
[2018-09-27 02:35] VITALS: BP 154/76; PULSE 76; RESP 18
[2018-09-27] MEDS: ALBUTEROL/IPRATROPIUM (NEB) 3 ML AMP HHN PRN ×2 (03:58→20:53)
[2018-09-27] MEDS: PANTOPRAZOLE 40 MG INJ IV SCH (05:53)
[2018-09-27] MEDS: METHYLPREDNISOLONE 125 MG INJ IV SCH (05:54)
[2018-09-27] MEDS: LEVOTHYROXINE 88 MCG TAB PO SCH (05:55)
[2018-09-27] MEDS: ALBUTEROL/IPRATROPIUM (NEB) 3 ML AMP HHN SCH ×2 (07:28→16:21)
[2018-09-27 09:31] VITALS: BP 141/73; PULSE 92; RESP 18
[2018-09-27] MEDS: LORATADINE 10 MG TAB PO SCH (09:35)
[2018-09-27] MEDS: ASPIRIN (EC) 81 MG TAB PO SCH (09:35)
[2018-09-27] MEDS: ENOXAPARIN 40 MG/0.4 ML SYG SC SCH (09:36)
[2018-09-27] MEDS: MULTIVITAMINS THERAPEUTIC TAB PO SCH (09:36)
[2018-09-27] MEDS: OLANZAPINE 2.5 MG TAB PO SCH (09:36)
--- NOTE | 2018-09-27 10:23 | PN ---
Date/Time of Note Date/Time of Note DATE: 09/27/18 TIME: 10:20 Assessment/Plan VTE Prophylaxis Risk score (from Nsg)>0 risk: 4 SCD applied (from Nsg): Yes SCD contraindicated: low risk/ambulating Pharmacological prophylaxis: LMWH Lines/Catheters IV Catheter Type (from Nrsg): Peripheral IV Urinary Cath still in place: Yes Reason Cath still needed: other (indicate) (Bedbound delirium fall risk at present) Assessment/Plan Hospital Course Assessment and plan 1. Acute hypoxic respiratory failure, stable Taper O2 as possible 2. Bronchitis versus pneumonia versus viral illness, check x-ray/influenza 3. Dementia with delirium 4. Failure to thrive back to assisted living versus sniff 5. Chronic hypothyroidism 6. Chronic COPD 7. Abn EKG: poor R through septal leads, asymptomatic, continue medical management S: Less pulmonary distress. Delirium and anxiety overnight. Will need family at bed side during daytime. Discontinue O2/[place] when stable Objective: Vital signs stable except hypoxia Physical exam No pallor JVD Regular no murmur rub gallop Diminished breath sounds at bases no tachypnea Bs+ nt nd; no RRG No edemaHomans Result Diagram: 09/26/18 0424 09/26/18 0424 Results 24hrs Laboratory Tests Test 09/27/18 10:11 White Blood Count Pending Red Blood Count Pending Hemoglobin Pending Hematocrit Pending Mean Corpuscular Volume Pending Mean Corpuscular Hemoglobin Pending Mean Corpuscular Hemoglobin Concent Pending Red Cell Distribution Width Pending Platelet Count Pending Mean Platelet Volume Pending Exam/Review of Systems Vital Signs Vitals Vital Signs Date Temp Pulse Resp B/P (MAP) Pulse Ox O2 O2 Flow FiO2 Time Delivery Rate 09/27/18 98.3 92 18 141/73 98 Nasal 3.0 09:31 (95) Cannula Intake and Output 09/26/18 09/26/18 09/27/18 1515:00 23:00 07:00 IntakeIntake Total 780 ml 120 ml OutputOutput Total 350 ml BalanceBalance 780 ml -230 ml Medications Medications Current Medications IV Flush (NS 3 ml) 3 ml PER PROTOCOL IV ; Start 09/25/18 at 12:30 Ondansetron HCl (Zofran Inj) 4 mg Q6H PRN IV NAUSEA AND/OR VOMITING; Start 09/25/18 at 12:30 Hydralazine HCl (Apresoline) 10 mg Q6H PRN IV SBP>160 Last administered on 09/26/18 07:59; Admin Dose 10 MG; Start 09/25/18 at 14:00 Aspirin (Halfprin) 81 mg DAILY PO Last administered on 09/27/18 09:35; Admin Dose 81 MG; Start 09/26/18 at 09:00 Loratadine (Claritin) 10 mg DAILY PO Last administered on 09/27/18 09:35; Admin Dose 10 MG; Start 09/26/18 at 09:00 Multivitamins Therapeutic (Theragran) 1 tab DAILY PO Last administered on 09/27/18 09:36; Admin Dose 1 TAB; Start 09/26/18 at 09:00 Methylprednisolone Sodium Succinate (Solu-Medrol) 60 mg Q8 IV Last administered on 09/27/18 05:54; Admin Dose 60 MG; Start 09/25/18 at 14:00 Pantoprazole (Protonix Iv) 40 mg DAILY@06 IV Last administered on 09/27/18 05:53; Admin Dose 40 MG; Start 09/26/18 at 06:00 Enoxaparin Sodium (Lovenox) 40 mg DAILY SC Last administered on 09/27/18 09:36; Admin Dose 40 MG; Start 09/26/18 at 09:00 Albuterol/ Ipratropium (Duoneb) 3 ml Q6HWA RESP THERAPY HHN Last administered on 09/27/18 07:28; Admin Dose 3 ML; Start 09/25/18 at 20:00 Albuterol/ Ipratropium (Duoneb) 3 ml Q2H RESP THERAPY PRN HHN SHORTNESS OF BREATH Last administered on 09/27/18 03:58; Admin Dose 3 ML; Start 09/25/18 at 14:30 Levothyroxine Sodium (Synthroid) 88 mcg DAILY@06 PO ; Start 09/27/18 at 06:00 Ceftriaxone Sodium 50 ml @ 100 mls/hr Q24H IVPB Last administered on 09/26/18 11:22; Admin Dose 100 MLS/HR; Start 09/26/18 at 11:00 Azithromycin 250 ml @ 250 mls/hr Q24H IVPB Last administered on 1/13/19at 12:35; Admin Dose 250 MLS/HR; Start 09/26/18 at 12:00 Olanzapine (Zyprexa) 2.5 mg DAILY PO Last administered on 09/27/18at 09:36; Admin Dose 2.5 MG; Start 09/26/18 at 12:00 Benzonatate (Tessalon) 100 mg TID PRN PO COUGH; Start 09/27/18 at 04:30 LANDY VARGAS MD Sep 27, 2018 10:23
[2018-09-27] MEDS ORDERED: DEXTROSE 5%-0.45% NACL 1,000 ML IV SCH (11:00)
[2018-09-27] MEDS: CEFTRIAXONE 1 GM/50 ML (PMX) 50 ML IVPB SCH (11:35)
[2018-09-27 14:00] VITALS: BP 153/82; PULSE 90; RESP 18
[2018-09-27] MEDS: AZITHROMYCIN 250 MG TAB PO SCH (16:50)
[2018-09-27] MEDS: BENZONATATE 100 MG CAP PO PRN (17:17)
[2018-09-27 20:00] VITALS: BP 152/72; PULSE 83; RESP 18
[2018-09-27] MEDS: DOCUSATE SODIUM 100 MG CAP PO SCH (20:10)
[2018-09-27] MEDS: QUETIAPINE 25 MG TAB PO PRN (20:10)
[2018-09-28] MEDS: ALBUTEROL/IPRATROPIUM (NEB) 3 ML AMP HHN SCH ×3 (00:45→16:00)
[2018-09-28] MEDS: BENZONATATE 100 MG CAP PO PRN ×3 (01:55→21:12)
[2018-09-28 02:09] VITALS: BP 126/86; PULSE 93; RESP 18
[2018-09-28] MEDS: LEVOTHYROXINE 88 MCG TAB PO SCH (06:04)
[2018-09-28] MEDS: PANTOPRAZOLE (EC) 40 MG TAB PO SCH (06:05)
[2018-09-28 08:00] VITALS: BP 140/80; PULSE 98; RESP 18
[2018-09-28] MEDS: ASPIRIN (EC) 81 MG TAB PO SCH (09:10)
[2018-09-28] MEDS: LORATADINE 10 MG TAB PO SCH (09:10)
[2018-09-28] MEDS: AZITHROMYCIN 250 MG TAB PO SCH (09:10)
[2018-09-28] MEDS: predniSONE 20 MG TAB PO SCH (09:10)
[2018-09-28] MEDS: MULTIVITAMINS THERAPEUTIC TAB PO SCH (09:10)
[2018-09-28] MEDS: OLANZAPINE 2.5 MG TAB PO SCH (09:11)
[2018-09-28] MEDS: ENOXAPARIN 40 MG/0.4 ML SYG SC SCH (09:12)
[2018-09-28] MEDS: CEFTRIAXONE 1 GM/50 ML (PMX) 50 ML IVPB SCH (12:09)
--- NOTE | 2018-09-28 13:55 | PN ---
Date/Time of Note Date/Time of Note DATE: 09/28/18 TIME: 13:52 Assessment/Plan VTE Prophylaxis Risk score (from Ns)>0 risk: 4 SCD applied (from Ns): Yes Pharmacological prophylaxis: NA/contraindicated Pharm contraindication: low risk/ambulating Lines/Catheters IV Catheter Type (from [facility]): [place] Lock Urinary Cath still in place: Yes Reason Cath still needed: other (indicate) (dementia) Assessment/Plan Assessment/Plan 88-year-old female with comorbidities including COPD, dementia, and hypothyroidism, who was brought in from an assisted living facility because of dyspnea with evidence of underlying sepsis and acute respiratory failure, who will be admitted to inpatient setting for further treatment and evaluation. 1. Sepsis with leukocytosis and tachycardia, present on admission secondary to underlying suspected urinary tract infection and suspected tracheobronchitis. - NOW RESOLVED -Continue course of azithromycin -Pancultures negative so far. -Judicious use of IV fluids. 2. Acute respiratory failure. -Hypoxic. -Probably secondary to underlying COPD exacerbation. -Continue inhaled bronchodilators. -Continue tapering dose of steroids. -Continue supplemental oxygen. -I'm also adding N-acetylcysteine today for mucolytic effect. 3. Suspected urinary tract infection. -Urine cultures negative. 4. Dementia. -Frequent reorientation. -1:1 sitter. -PRN anxiolytics/antipsychotics. 5. Hypothyroidism. -Continue Synthroid. -Decrease the dosing. 6. Dysphagia. -Status post placed therapy evaluation. -Aspiration precautions. -Pured diet. 7. Fluids, electrolytes, and nutrition. -Pured diet. 8. DVT prophylaxis. -Subcutaneous Lovenox (patient refusing). 9. Plan. -De-escalate antimicrobials. -Continue inhaled bronchodilators and tapering dose of steroids. -Await clinical improvement. -PT evaluation. Result Diagram: 09/28/1852509/28/18525 Results 24hrs Laboratory Tests Test 09/28/18 05:26 White Blood Count 15.8 H Red Blood Count 4.06 L Hemoglobin 12.4 Hematocrit 38.4 Mean Corpuscular Volume 94.6 Mean Corpuscular Hemoglobin 30.5 Mean Corpuscular Hemoglobin Concent 32.3 Red Cell Distribution Width 14.6 H Platelet Count 233 Mean Platelet Volume 12.4 H Immature Granulocytes % 2.700 H Neutrophils % 70.0 Lymphocytes % 19.9 Monocytes % 6.5 Eosinophils % 0.4 Basophils % 0.5 Nucleated Red Blood Cells % 0.0 Immature Granulocytes # 0.430 H Neutrophils # 11.1 H Lymphocytes # 3.1 H Monocytes # 1.0 H Eosinophils # 0.1 Basophils # 0.1 Nucleated Red Blood Cells # 0.0 Sodium Level 148 H Potassium Level 3.9 Chloride Level 110 Carbon Dioxide Level 31 Anion Gap 7 Blood Urea Nitrogen 29 H Creatinine 0.89 Est Glomerular Filtrat Rate mL/min Glucose Level 85 # Calcium Level 10.0 Magnesium Level 2.5 Troponin I 0.041 Subjective 24 Hr Interval Summary Free Text/Dictation No acute overnight events. Patient still requiring oxygen and with frequent weak cough. Exam/Review of Systems Vital Signs Vitals Vital Signs Date Temp Pulse Resp B/P (MAP) Pulse Ox O2 O2 Flow FiO2 Time Delivery Rate 09/28/18 Nasal 3.0 09:00 Cannula 09/28/18 103 17 95 08:59 09/28/18 98.8 140/80 08:00 (100) Intake and Output 09/27/18 09/27/18 09/28/18 1515:00 23:00 07:00 IntakeIntake Total 50 ml 1100 ml 100 ml OutputOutput Total 300 ml 500 ml BalanceBalance 50 ml 800 ml -400 ml Exam General: Frail appearing 88 year-old woman lying in bed in mild respiratory distress. HEENT: Normocephalic, atraumatic. Eyes: Anicteric sclerae, conjunctivae clear. ENT: Nasal septum midline, oral mucosa is dry. Neck supple. Respiratory: Poor inspiratory effort. Frequent dry weak cough. Cardiovascular: S1, S2 heard. Regular rate and rhythm. Abdomen: Soft, nontender, and nondistended. Bowel sounds positive in all 4 quadrants. Genitourinary: [place] catheter in place draining straw-colored urine. Extremities: No cyanosis, no clubbing, no edema. Peripheral pulses palpable. Medications Medications Current Medications IV Flush (NS 3 ml) 3 ml PER PROTOCOL IV ; Start 09/25/18 at 12:30 Ondansetron HCl (Zofran Inj) 4 mg Q6H PRN IV NAUSEA AND/OR VOMITING; Start 09/25/18 at 12:30 Hydralazine HCl (Apresoline) 10 mg Q6H PRN IV SBP>160 Last administered on 09/26/18 07:59; Admin Dose 10 MG; Start 09/25/18 at 14:00 Aspirin (Halfprin) 81 mg DAILY PO Last administered on 09/28/18 09:10; Admin Dose 81 MG; Start 09/26/18 at 09:00 Loratadine (Claritin) 10 mg DAILY PO Last administered on 09/28/18 09:10; Admin Dose 10 MG; Start 09/26/18 at 09:00 Multivitamins Therapeutic (Theragran) 1 tab DAILY PO Last administered on 09/28 09:10; Admin Dose 1 TAB; Start 09/26/18 at 09:00 Enoxaparin Sodium (Lovenox) 40 mg DAILY SC Last administered on 09/28/18 09:12; Admin Dose 40 MG; Start 09/26/18 at 09:00 Albuterol/ Ipratropium (Duoneb) 3 ml Q2H RESP THERAPY PRN HHN SHORTNESS OF BREATH Last administered on 09/27/18 20:53; Admin Dose 3 ML; Start 09/25/18 at 14:30 Levothyroxine Sodium (Synthroid) 88 mcg DAILY@06 PO Last administered on 09/28/18 06:04; Admin Dose 88 MCG; Start 09/27/18 at 06:00 Ceftriaxone Sodium 50 ml @ 100 mls/hr Q24H IVPB Last administered on 09/28/18 12:09; Admin Dose 100 MLS/HR; Start 09/26/18 at 11:00 Olanzapine (Zyprexa) 2.5 mg DAILY PO Last administered on 09/28/18 09:11; Admin Dose 2.5 MG; Start 09/26/18 at 12:00 Benzonatate (Tessalon) 100 mg TID PRN PO COUGH Last administered on 09/28/18 09:10; Admin Dose 100 MG; Start 09/27/18 at 04:30 Albuterol/ Ipratropium (Duoneb) 3 ml Q8H RESP THERAPY HHN Last administered on 09/28/18 08:57; Admin Dose 3 ML; Start 09/27/18 at 16:00 Azithromycin (Zithromax) 500 mg DAILY PO Last administered on 09/28/18 09:10; Admin Dose 500 MG; Start 09/27/18 at 13:00 Prednisone (Prednisone) 60 mg DAILY PO Last administered on 09/28/18at 09:10; Ad min Dose 60 MG; Start 09/28/18 at 09:00; Stop 09/30/18 at 23:00 Pantoprazole (Protonix Tab) 40 mg DAILY@06 PO Last administered on 09/28/18at 06:05; Admin Dose 40 MG; Start 09/28/18 at 06:00 Docusate Sodium (Colace) 100 mg HS PO Last administered on 09/27/18at 20:10; Admin Dose 100 MG; Start 09/27/18 at 21:00 Quetiapine Fumarate (Seroquel) 25 mg HS PRN PO AGITATION/ANXIETY Last administered on 09/27/18at 20:10; Admin Dose 25 MG; Start 09/27/18 at 11:00 Acetylcysteine (Mucomyst) 2 ml Q6H RESP THERAPY NEB ; Start 09/28/18 at 14:00; Status UNV CLINTON ESCALERA MD Sep 28, 2018 13:55
[2018-09-28 14:00] VITALS: BP 148/86; RESP 18
[2018-09-28] MEDS: ACETYLCYSTEINE 20% 4 ML VIAL NEB SCH ×2 (14:00→21:06)
[2018-09-28 19:12] VITALS: BP 158/76; PULSE 82; RESP 18
[2018-09-28] MEDS: ALBUTEROL/IPRATROPIUM (NEB) 3 ML AMP HHN PRN (21:06)
[2018-09-28] MEDS: DOCUSATE SODIUM 100 MG CAP PO SCH (21:12)
[2018-09-29 02:00] VITALS: BP 132/98; PULSE 89; RESP 16
[2018-09-29] MEDS: ACETYLCYSTEINE 20% 4 ML VIAL NEB SCH ×4 (02:02→20:18)
[2018-09-29] MEDS: ALBUTEROL/IPRATROPIUM (NEB) 3 ML AMP HHN SCH ×3 (02:02→15:14)
[2018-09-29] MEDS: QUETIAPINE 25 MG TAB PO PRN (02:14)
[2018-09-29] MEDS: PANTOPRAZOLE (EC) 40 MG TAB PO SCH (05:34)
[2018-09-29] MEDS: LEVOTHYROXINE 88 MCG TAB PO SCH (05:34)
[2018-09-29 07:25] VITALS: BP 165/85; PULSE 74; RESP 18
[2018-09-29] MEDS: predniSONE 20 MG TAB PO SCH (09:30)
[2018-09-29] MEDS: LORATADINE 10 MG TAB PO SCH (09:30)
[2018-09-29] MEDS: MULTIVITAMINS THERAPEUTIC TAB PO SCH (09:30)
[2018-09-29] MEDS: ASPIRIN (EC) 81 MG TAB PO SCH (09:30)
[2018-09-29] MEDS: AZITHROMYCIN 250 MG TAB PO SCH (09:30)
[2018-09-29] MEDS: OLANZAPINE 2.5 MG TAB PO SCH (09:31)
[2018-09-29] MEDS: ENOXAPARIN 40 MG/0.4 ML SYG SC SCH (09:32)
[2018-09-29] MEDS: CEFTRIAXONE 1 GM/50 ML (PMX) 50 ML IVPB SCH (11:10)
--- NOTE | 2018-09-29 13:52 | PN ---
Date/Time of Note Date/Time of Note DATE: 09/29/18 TIME: 13:50 Assessment/Plan VTE Prophylaxis Risk score (from Ns)>0 risk: 4 SCD applied (from Ns): Yes Pharmacological prophylaxis: heparin Lines/Catheters IV Catheter Type (from Nrs): Saline Lock Urinary Cath still in place: Yes Reason Cath still needed: urinary retention Assessment/Plan Hospital Course 88 yo female with dementia who presented with apparent respiratory distress now resolved - Will dc standing abx as no evidence of sepsis and clear XR - Can stop systemic steroids, bronchodilators PRN - Discharge back to shelter Comfort measures/DNR per POLST Result Diagram: 09/29/18 0423 09/29/183 Results 24hrs Laboratory Tests Test 09/29/18 04:23 White Blood Count 14.3 H Red Blood Count 4.50 Hemoglobin 13.3 Hematocrit 41.5 Mean Corpuscular Volume 92.2 Mean Corpuscular Hemoglobin 29.6 Mean Corpuscular Hemoglobin Concent 32.0 Red Cell Distribution Width 14.3 Platelet Count 229 Mean Platelet Volume 11.8 H Immature Granulocytes % 2.800 H Neutrophils % 64.5 Lymphocytes % 25.5 Monocytes % 5.1 Eosinophils % 1.5 Basophils % 0.6 Nucleated Red Blood Cells % 0.0 Immature Granulocytes # 0.400 H Neutrophils # 9.3 H Lymphocytes # 3.7 H Monocytes # 0.7 Eosinophils # 0.2 Basophils # 0.1 Nucleated Red Blood Cells # 0.0 Sodium Level 145 H Potassium Level 3.6 Chloride Level 104 Carbon Dioxide Level 33 H Anion Gap 8 Blood Urea Nitrogen 20 Creatinine 0.90 Est Glomerular Filtrat Rate mL/min Glucose Level 90 Calcium Level 9.6 Phosphorus Level 1.9 #L Magnesium Level 2.2 Subjective 24 Hr Interval Summary Free Text/Dictation Apears very comfortable Exam/Review of Systems Vital Signs Vitals Vital Signs Date Temp Pulse Resp B/P (MAP) Pulse Ox O2 O2 Flow FiO2 Time Delivery Rate 09/29/18 78 18 97 Nasal 3.0 08:43 Cannula 09/29/18 98.5 165/85 07:25 (111) Intake and Output 09/28/18 09/28/18 09/29/18 1515:00 23:00 07:00 IntakeIntake Total 810 ml 360 ml 120 ml OutputOutput Total 650 ml 1150 ml BalanceBalance 810 ml -290 ml -1030 ml Exam Resting comfortably, no distress Pleasnatly demented CTAB Soft nt tnd RRR Medications Medications Current Medications IV Flush (NS 3 ml) 3 ml PER PROTOCOL IV ; Start 09/25/18 at 12:30 Ondansetron HCl (Zofran Inj) 4 mg Q6H PRN IV NAUSEA AND/OR VOMITING; Start 09/25/18 at 12:30 Hydralazine HCl (Apresoline) 10 mg Q6H PRN IV SBP>160 Last administered on 09/26/18 07:59; Admin Dose 10 MG; Start 09/25/18 at 14:00 Aspirin (Halfprin) 81 mg DAILY PO Last administered on 09/29/18 09:30; Admin Dose 81 MG; Start 09/26/18 at 09:00 Loratadine (Claritin) 10 mg DAILY PO Last administered on 09/29/18 09:30; Admin Dose 10 MG; Start 09/26/18 at 09:00 Multivitamins Therapeutic (Theragran) 1 tab DAILY PO Last administered on 09/29/18 09:30; Admin Dose 1 TAB; Start 09/26/18 at 09:00 Enoxaparin Sodium (Lovenox) 40 mg DAILY SC Last administered on 09/29/18 09:32; Admin Dose 40 MG; Start 09/26/18 at 09:00 Albuterol/ Ipratropium (Duoneb) 3 ml Q2H RESP THERAPY PRN HHN SHORTNESS OF BREATH Last administered on 09/28/18 21:06; Admin Dose 3 ML; Start 09/25/18 at 14:30 Levothyroxine Sodium (Synthroid) 88 mcg DAILY@06 PO Last administered on 09/29/18 05:34; Admin Dose 88 MCG; Start 09/27/18 at 06:00 Ceftriaxone Sodium 50 ml @ 100 mls/hr Q24H IVPB Last administered on 09/29/18 11:10; Admin Dose 100 MLS/HR; Start 09/26/18 at 11:00 Olanzapine (Zyprexa) 2.5 mg DAILY PO Last administered on 09/29/18 09:31; Admin Dose 2.5 MG; Start 09/26/18 at 12:00 Benzonatate (Tessalon) 100 mg TID PRN PO COUGH Last administered on 09/28/18 21:12; Admin Dose 100 MG; Start 09/27/18 at 04:30 Albuterol/ Ipratropium (Duoneb) 3 ml Q8H RESP THERAPY HHN Last administered on 09/29/18 08:34; Admin Dose 3 ML; Start 09/27/18 at 16:00 Azithromycin (Zithromax) 500 mg DAILY PO Last administered on 09/29/18 09:30; Admin Dose 500 MG; Start 09/27/18 at 13:00 Prednisone (Prednisone) 60 mg DAILY PO Last administered on 09/29/18 09:30; Admin Dose 60 MG; Start 09/28/18 at 09:00; Stop 09/30/18 at 23:00 Pantoprazole (Protonix Tab) 40 mg DAILY@06 PO Last administered on 09/29/18 05:34; Admin Dose 40 MG; Start 09/28/18 at 06:00 Docusate Sodium (Colace) 100 mg HS PO Last administered on 09/28/18 21:12; Admin Dose 100 MG; Start 09/27/18 at 21:00 Quetiapine Fumarate (Seroquel) 25 mg HS PRN PO AGITATION/ANXIETY Last administered on 09/29/18 02:14; Admin Dose 25 MG; Start 09/27/18 at 11:00 Acetylcysteine (Mucomyst) 2 ml Q6H RESP THERAPY NEB Last administered on 09/29/18 08:34; Admin Dose 2 ML; Start 09/28/18 at 14:00 MARILEE RIVERA MD Sep 29, 2018 13:52
[2018-09-29 14:00] VITALS: BP 178/82; PULSE 69; RESP 18
[2018-09-29 19:16] VITALS: BP 132/62; PULSE 72; RESP 18
[2018-09-29] MEDS: ALBUTEROL/IPRATROPIUM (NEB) 3 ML AMP HHN PRN (20:18)
[2018-09-29] MEDS: BENZONATATE 100 MG CAP PO PRN (20:38)
[2018-09-29] MEDS: DOCUSATE SODIUM 100 MG CAP PO SCH (20:38)
[2018-09-30] MEDS: ALBUTEROL/IPRATROPIUM (NEB) 3 ML AMP HHN SCH ×2 (00:54→07:51)
[2018-09-30] MEDS: ACETYLCYSTEINE 20% 4 ML VIAL NEB SCH ×4 (01:05→23:49)
[2018-09-30 01:17] VITALS: BP 137/76; PULSE 70; RESP 18
[2018-09-30] MEDS: LEVOTHYROXINE 88 MCG TAB PO SCH (05:53)
[2018-09-30] MEDS: PANTOPRAZOLE (EC) 40 MG TAB PO SCH (05:53)
[2018-09-30] MEDS: OLANZAPINE 2.5 MG TAB PO SCH (08:11)
[2018-09-30] MEDS: MULTIVITAMINS THERAPEUTIC TAB PO SCH (08:11)
[2018-09-30] MEDS: LORATADINE 10 MG TAB PO SCH (08:11)
[2018-09-30] MEDS: ENOXAPARIN 40 MG/0.4 ML SYG SC SCH (08:12)
[2018-09-30 12:30] VITALS: BP 124/58; PULSE 84; RESP 16
--- NOTE | 2018-09-30 12:41 | PDOCDIS ---
Discharge Instructions CONDITION [id number] Patient Condition: [id number] Stable HOME CARE INSTRUCTIONS: [id number] Special Diet: [id number] pureed diet ACTIVITY: [id number] Activity Restrictions: [id number] Slowly Increase Activity Do not Drive FOLLOW UP/APPOINTMENTS Follow-up Plan appt PCP & Hospice Consult 1-2wks LANDY VARGAS MD Sep 30, 2018 12:41
--- NOTE | 2018-09-30 15:24 | PN ---
Date/Time of Note Date/Time of Note DATE: 09/30/18 TIME: 15:22 Assessment/Plan VTE Prophylaxis Risk score (from Ns)>0 risk: 6 SCD applied (from Ns): Yes SCD contraindicated: low risk/ambulating Pharmacological prophylaxis: LMWH Lines/Catheters IV Catheter Type (from Nrsg): Peripheral IV Urinary Cath still in place: No Assessment/Plan Hospital Course Assessment and plan 1. Acute hypoxic respiratory failure, stable Taper O2 as possible 2. Bronchitis vs pneumonia vs viral illness, stable finish empiric therapy. influenza stain was negative 3. Dementia with delirium supportive care continue trazodone and Ativan as needed. Reorient/DC tethers if possible 4. Failure to thrive back to assisted living versus sniff 5. Chronic hypothyroidism 6. Chronic COPD 7. Abn EKG: poor R through septal leads, asymptomatic, continue medical management S: 09/27 less pulmonary distress. Delirium and anxiety overnight. Will need family at bed side during daytime. Discontinue O2/[place] when stable: 09/30 no distress except anxiety. Objective: Vital signs stable Physical exam No pallor JVD droop Regular no murmur rub gallop ctab no tachypnea Bs+ nt nd; no RRG No edemaHomans Result Diagram: 09/29/1842209/29/18 042 Exam/Review of Systems Vital Signs Vitals Vital Signs Date Temp Pulse Resp B/P (MAP) Pulse Ox O2 O2 Flow FiO2 Time Delivery Rate 09/30/18 98.4 84 16 124/58 96 12:30 (80) 09/30/18 21 07:55 09/30/18 3.0 04:02 09/30/18 Nasal 00:54 Cannula Intake and Output 09/29/18 09/29/18 09/30/18 1515:00 23:00 07:00 IntakeIntake Total 350 ml BalanceBalance 350 ml Medications Medications Current Medications IV Flush (NS 3 ml) 3 ml PER PROTOCOL IV ; Start 09/25/18 at 12:30 Ondansetron HCl (Zofran Inj) 4 mg Q6H PRN IV NAUSEA AND/OR VOMITING; Start 09/25/18 at 12:30 Hydralazine HCl (Apresoline) 10 mg Q6H PRN IV SBP>160 Last administered on 09/26/18at 07:59; Admin Dose 10 MG; Start 09/25/18 at 14:00 Loratadine (Claritin) 10 mg DAILY PO Last administered on 09/30/18 08:11; Admin Dose 10 MG; Start 09/26/18 at 09:00 Multivitamins Therapeutic (Theragran) 1 tab DAILY PO Last administered on 09/30/18 08:11; Admin Dose 1 TAB; Start 09/26/18 at 09:00 Enoxaparin Sodium (Lovenox) 40 mg DAILY SC Last administered on 09/30/18 08:12; Admin Dose 40 MG; Start 09/26/18 at 09:00 Albuterol/ Ipratropium (Duoneb) 3 ml Q2H RESP THERAPY PRN HHN SHORTNESS OF BREATH Last administered on 09/29/18 20:18; Admin Dose 3 ML; Start 09/25/18 at 14:30 Levothyroxine Sodium (Synthroid) 88 mcg DAILY@06 PO Last administered on 09/30/18 05:53; Admin Dose 88 MCG; Start 09/27/18 at 06:00 Olanzapine (Zyprexa) 2.5 mg DAILY PO Last administered on 09/30/18 08:11; Admin Dose 2.5 MG; Start 09/26/18 at 12:00 Benzonatate (Tessalon) 100 mg TID PRN PO COUGH Last administered on 09/29/18 20:38; Admin Dose 100 MG; Start 09/27/18 at 04:30 Albuterol/ Ipratropium (Duoneb) 3 ml Q8H RESP THERAPY HHN Last administered on 09/30/18 07:51; Admin Dose 3 ML; Start 09/27/18 at 16:00 Pantoprazole (Protonix Tab) 40 mg DAILY@06 PO Last administered on 09/30/18 05:53; Admin Dose 40 MG; Start 09/28/18 at 06:00 Docusate Sodium (Colace) 100 mg HS PO Last administered on 09/29/18 20:38; Admin Dose 100 MG; Start 09/27/18 at 21:00 Quetiapine Fumarate (Seroquel) 25 mg HS PRN PO AGITATION/ANXIETY Last administered on 09/29/18 02:14; Admin Dose 25 MG; Start 09/27/18 at 11:00 Acetylcysteine (Mucomyst) 2 ml Q8H RESP THERAPY NEB ; Start 09/30/18 at 16:00 LANDY VARGAS MD Sep 30, 2018 15:24
[2018-09-30] MEDS: ALBUTEROL/IPRATROPIUM (NEB) 3 ML AMP HHN PRN ×2 (16:58→23:49)
[2018-09-30 19:16] VITALS: BP 134/91; PULSE 90; RESP 18
[2018-09-30] MEDS: DOCUSATE SODIUM 100 MG CAP PO SCH (19:47)
[2018-09-30] MEDS: QUETIAPINE 25 MG TAB PO PRN (19:48)
[2018-09-30] MEDS ORDERED: LORAZEPAM 2 MG INJ ONE (20:17)
[2018-09-30] MEDS ORDERED: LORAZEPAM 2 MG INJ IV ONE (20:30)
[2018-10-01 03:02] VITALS: BP 152/67; PULSE 70; RESP 16
[2018-10-01] MEDS: LEVOTHYROXINE 88 MCG TAB PO SCH (06:05)
[2018-10-01] MEDS: PANTOPRAZOLE (EC) 40 MG TAB PO SCH (06:05)
[2018-10-01 08:05] VITALS: BP 185/88; PULSE 68; RESP 18
[2018-10-01] MEDS: ALBUTEROL/IPRATROPIUM (NEB) 3 ML AMP HHN PRN ×2 (08:34→15:28)
[2018-10-01] MEDS: ACETYLCYSTEINE 20% 4 ML VIAL NEB SCH ×2 (08:34→15:28)
[2018-10-01] MEDS: LORATADINE 10 MG TAB PO SCH (09:31)
[2018-10-01] MEDS: MULTIVITAMINS THERAPEUTIC TAB PO SCH (09:31)
[2018-10-01] MEDS: OLANZAPINE 2.5 MG TAB PO SCH ×3 (09:31→21:25)
[2018-10-01] MEDS: ENOXAPARIN 40 MG/0.4 ML SYG SC SCH (09:35)
[2018-10-01 10:35] VITALS: BP 139/65
[2018-10-01] MEDS: AZITHROMYCIN 250 MG TAB PO SCH (12:06)
--- NOTE | 2018-10-01 12:58 | PN ---
Date/Time of Note Date/Time of Note DATE: 10/01/18 TIME: 12:56 Assessment/Plan VTE Prophylaxis Risk score (from Nsg)>0 risk: 6 SCD applied (from Ns): Yes Pharmacological prophylaxis: LMWH Lines/Catheters IV Catheter Type (from Nrsg): Saline Lock Urinary Cath still in place: No Assessment/Plan Hospital Course Assessment and plan 1. Acute hypoxic respiratory failure, stable Taper O2 as possible 2. Bronchitis vs pneumonia vs viral illness, stable finish empiric therapy. influenza stain was negative 3. Dementia with delirium supportive care continue trazodone and Ativan as need ed. Reorient/DC tethers if possible. 4. Failure to thrive back to assisted living versus sniff 5. Chronic hypothyroidism 6. Chronic COPD 7. Abn EKG: poor R through septal leads, asymptomatic, continue medical management S: 09/27 less pulmonary distress. Delirium and anxiety overnight. Will need family at bed side during daytime. Discontinue O2/[place] when stable: 09/30 no distress except anxiety. 10/01: sitter dced. patient better; doesnt require sitter/ restraints. continue fall precautions at snf. Objective: Vital signs stable Physical exam No pallor JVD droop Regular no murmur rub gallop ctab no tachypnea Bs+ nt nd; no RRG No edemaHomans Result Diagram: 09/29/1842209/29/18422 Exam/Review of Systems Vital Signs Vitals Vital Signs Date Temp Pulse Resp B/P (MAP) Pulse Ox O2 O2 Flow FiO2 Time Delivery Rate 10/01/18 139/65 10:35 (89) 10/01/18 68 20 92 21 08:34 10/01/18 98.2 Room Air 08:05 10/01/18 3.0 00:01 Intake and Output 09/30/18 09/30/18 10/01/18 1515:00 23:00 07:00 IntakeIntake Total 600 ml 480 ml BalanceBalance 600 ml 480 ml Medications Medications Current Medications IV Flush (NS 3 ml) 3 ml PER PROTOCOL IV ; Start 09/25/18 at 12:30 Ondansetron HCl (Zofran Inj) 4 mg Q6H PRN IV NAUSEA AND/OR VOMITING; Start 09/25/18 at 12:30 Hydralazine HCl (Apresoline) 10 mg Q6H PRN IV SBP>160 Last administered on 09/26/18 07:59; Admin Dose 10 MG; Start 09/25/18 at 14:00 Loratadine (Claritin) 10 mg DAILY PO Last administered on 10/01/18 09:31; Admin Dose 10 MG; Start 09/26/18 at 09:00 Multivitamins Therapeutic (Theragran) 1 tab DAILY PO Last administered on 10/01/18 09:31; Admin Dose 1 TAB; Start 09/26/18 at 09:00 Enoxaparin Sodium (Lovenox) 40 mg DAILY SC Last administered on 10/01/18 09:35; Admin Dose 40 MG; Start 09/26/18 at 09:00 Albuterol/ Ipratropium (Duoneb) 3 ml Q2H RESP THERAPY PRN HHN SHORTNESS OF BREATH Last administered on 10/01/18 08:34; Admin Dose 3 ML; Start 09/25/18 at 14:30 Levothyroxine Sodium (Synthroid) 88 mcg DAILY@06 PO Last administered on 06:05; Admin Dose 88 MCG; Start 09/27/18 at 06:00 Benzonatate (Tessalon) 100 mg TID PRN PO COUGH Last administered on 09/29/18 20:38; Admin Dose 100 MG; Start 09/27/18 at 04:30 Pantoprazole (Protonix Tab) 40 mg DAILY@06 PO Last administered on 10/01/18 06:05; Admin Dose 40 MG; Start 09/28/18 at 06:00 Docusate Sodium (Colace) 100 mg HS PO Last administered on 09/30/18 19:47; Admin Dose 100 MG; Start 09/27/18 at 21:00 Quetiapine Fumarate (Seroquel) 25 mg HS PRN PO AGITATION/ANXIETY Last administered on 09/30/18 19:48; Admin Dose 25 MG; Start 09/27/18 at 11:00 Acetylcysteine (Mucomyst) 2 ml Q8H RESP THERAPY NEB Last administered on 10/01/18 08:34; Admin Dose 2 ML; Start 09/30/18 at 16:00 Olanzapine (Zyprexa) 2.5 mg BID PO ; Start 10/01/18 at 11:00 Azithromycin (Zithromax) 500 mg DAILY PO Last administered on 10/01/18at 12:06; Admin Dose 500 MG; Start 10/01/18 at 11:00 LANDY VARGAS MD Oct 01, 2018 12:57
--- NOTE | 2018-10-01 13:01 | DS ---
Date/Time of Note Date/Time of Note DATE: 10/01/18 TIME: 12:58 Discharge Summary Admission/Discharge Info Admit Date/Time Sep 25, 2018 at 11:21 Discharge Date/Time Patient Condition: Stable Procedures PROCEDURE: XR Chest. CLINICAL INDICATION: cough TECHNIQUE: Portable AP view of the chest was obtained. COMPARISON: DR OTTO 09/25/2018 CXR #2 FINDINGS: Slight interval increase in patchy opacities in the lung bases with tiny pleural effusions. Stable interstitial changes. No pneumothorax. Stable heart size. Calcified atherosclerosis of the thoracic aorta. IMPRESSION: Slight interval increase in bibasilar pulmonary opacities and small pleural effusions. Findings may represent atelectasis, however consider early aspiration or pneumonia. Hospital Course H COURSE - admitted with respiratory failure due to pneumonia. presently stable and fit for discharge to snf on Azithro & oxygen. Has delirium, will continue fall precautions & assistance at SNF. Dementia, may consider hospice care & to visit Neuro too Assessment and plan 1. Acute hypoxic respiratory failure, stable Taper O2 as possible 2. Bronchitis vs pneumonia vs viral illness, stable finish empiric therapy. influenza stain was negative 3. Dementia with delirium supportive care continue trazodone and Ativan as needed. Reorient/DC tethers if possible. 4. Failure to thrive back to assisted living versus sniff 5. Chronic hypothyroidism 6. Chronic COPD 7. Abn EKG: poor R through septal leads, asymptomatic, continue medical management S: 09/27 less pulmonary distress. Delirium and anxiety overnight. Will need family at bed side during daytime. Discontinue O2/[place] when stable: 09/30 no distress except anxiety. 10/01: sitter dced. patient better, calm, no agitation; doesnt require sitter/ restraints. continue fall precautions at snf. Objective: Vital signs stable Physical exam No pallor JVD droop Regular no murmur rub gallop ctab no tachypnea Bs+ nt nd; no RRG No edemaHomans Home Meds Reported Medications Trazodone Hcl* (Trazodone Hcl*) 50 Mg Tablet, 25 MG PO QHS, #30 TAB 09/25/18 Aspirin* (Aspirin* EC) 81 Mg Tablet., 81 MG PO DAILY, TAB 09/25/18 Acetaminophen* (Acetaminophen*) 325 Mg Tablet, 325 MG PO Q6H PRN for PAIN AND OR ELEVATED TEMP, #30 TAB 09/25/18 Multivitamins* (Theragran*) 1 Tab Tab, 1 TAB PO DAILY, TAB 09/25/18 Loratadine* (Loratadine*) 10 Mg Tablet, 10 MG PO DAILY, #30 TAB 09/25/18 Discontinued Reported Medications Levothyroxine Sodium* (Levothyroxine Sodium*) 150 Mcg Tablet, 150 MCG PO BEFORE BREAKFAST, #30 TAB Q WED-SUN 09/25/18 Levothyroxine Sodium* (Levothyroxine Sodium*) 125 Mcg Tablet, 125 MCG PO BEFORE BREAKFAST, #30 TAB Q [id number] 09/25/18 Lorazepam* (Lorazepam*) 0.5 Mg Tablet, 0.25 MG PO HS PRN for ANXIETY, TAB 09/25/18 Celecoxib* (Celebrex*) 100 Mg Capsule, 100 MG PO BID, CAP 09/25/18 Acetaminophen* (Acetaminophen*) 500 MG Extra Strength Tablet, 1000 MG PO QHS PRN for PAIN AND OR ELEVATED TEMP, TAB 08/09/17 Trazodone Hcl* (Trazodone Hcl*) 50 Mg Tablet, 50 MG PO Q8 PRN for SLEEP, #60 TAB 08/09/17 Memantine* (Namenda* XR) 28 Mg Cap.spr.24, 28 MG PO DAILY, #30 TAB 08/09/17 Loratadine* (Loratadine*) 10 Mg Tablet, 10 MG PO DAILY, #30 TAB 08/09/17 Levothyroxine Sodium* (Levoxyl*) 150 Mcg Tablet, 150 MCG PO THU,AND THU, #30 TAB 08/09/17 Levothyroxine Sodium* (Levoxyl*) 125 Mcg Tablet, 125 MCG PO THU,THU,,THU,SAT, #30 TAB 08/09/17 Donepezil* (Donepezil*) 5 Mg Tablet, 5 MG PO QHS, #30 TAB 08/09/17 Cyanocobalamin* (Vitamin B12*) 500 Mcg Tab, 500 MCG PO DAILY, TAB 08/09/17 Cholecalciferol (Vitamin D3) (VITAMIN D-3) 2,000 Unit Capsule, 2000 UNIT PO DAILY, CAP 08/09/17 Celecoxib* (Celebrex*) 100 Mg Capsule, 100 MG PO BID, CAP 08/09/17 Salmeterol Xinaf/Fluticasone* (Advair*) 250-50 Diskus Inhaler, 1 INH INHALATION BID, #1 INHALER 08/09/17 Follow-up Plan appt PCP & Hospice Consult 1-2wks Primary Care Provider Not On Staff Doctor LANDY VARGAS MD Oct 01, 2018 13:01
[2018-10-01] MEDS ORDERED: AZIT250T13 PO (14:04)
[2018-10-01 14:20] VITALS: BP 130/77; PULSE 84; RESP 18
[2018-10-01 20:00] VITALS: BP 135/61; PULSE 78; RESP 18
[2018-10-01] MEDS: DOCUSATE SODIUM 100 MG CAP PO SCH (21:24)
[2018-10-02] MEDS: QUETIAPINE 25 MG TAB PO PRN (00:09)
[2018-10-02] MEDS: ALBUTEROL/IPRATROPIUM (NEB) 3 ML AMP HHN PRN (01:30)
[2018-10-02] MEDS: ACETYLCYSTEINE 20% 4 ML VIAL NEB SCH ×2 (01:30→08:00)
[2018-10-02 02:00] VITALS: BP 135/73; PULSE 69; RESP 16
[2018-10-02] MEDS: PANTOPRAZOLE (EC) 40 MG TAB PO SCH (05:46)
[2018-10-02] MEDS: LEVOTHYROXINE 88 MCG TAB PO SCH (05:46)
[2018-10-02 07:48] VITALS: BP 133/92; PULSE 67; RESP 16
[2018-10-02] MEDS: OLANZAPINE 2.5 MG TAB PO SCH (08:42)
[2018-10-02] MEDS: MULTIVITAMINS THERAPEUTIC TAB PO SCH (08:42)
[2018-10-02] MEDS: AZITHROMYCIN 250 MG TAB PO SCH (08:42)
[2018-10-02] MEDS: LORATADINE 10 MG TAB PO SCH (08:42)
[2018-10-02] MEDS: ENOXAPARIN 40 MG/0.4 ML SYG SC SCH (08:45)
--- NOTE | 2018-10-02 14:59 | PN ---
Date/Time of Note Date/Time of Note DATE: 10/02/18 TIME: 14:58 Assessment/Plan VTE Prophylaxis Risk score (from Ns)>0 risk: 6 SCD applied (from Ns): Yes Pharmacological prophylaxis: LMWH Lines/Catheters IV Catheter Type (from [facility]): Saline Lock Urinary Cath still in place: No Assessment/Plan Hospital Course Assessment and plan 1. Acute hypoxic respiratory failure, stable Taper O2 as possible 2. Bronchitis vs pneumonia vs viral illness, stable finish empiric therapy. influenza was negative 3. Dementia with delirium supportive care continue trazodone and Ativan as needed. Reorient/DCed tethers. 4. Failure to thrive back to assisted living versus sniff 5. Chronic hypothyroidism 6. Chronic COPD 7. Abn EKG: poor R through septal leads, asymptomatic, continue medical m anagement S: 09/27 less pulmonary distress. Delirium and anxiety overnight. Will need family at bed side during daytime. Discontinue O2/[place] when stable: 09/30 no distress except anxiety. 10/01: sitter dced. patient better; doesnt require sitter/ restraints. continue fall precautions at snf. 10/02: No events overnight. Objective: Vital signs stable Physical exam No pallor JVD droop Regular no murmur rub gallop ctab no tachypnea Bs+ nt nd; no RRG No edemaHomans Result Diagram: 10/02/18 0610 10/02/18 0610 Results 24hrs Laboratory Tests Test 10/02/18 06:10 White Blood Count 13.4 H Red Blood Count 4.96 Hemoglobin 14.7 Hematocrit 46.0 Mean Corpuscular Volume 92.7 Mean Corpuscular Hemoglobin 29.6 Mean Corpuscular Hemoglobin Concent 32.0 Red Cell Distribution Width 14.7 H Platelet Count 243 Mean Platelet Volume 11.4 H Immature Granulocytes % 1.500 H Neutrophils % 67.9 Lymphocytes % 20.1 Monocytes % 6.0 Eosinophils % 3.8 Basophils % 0.7 Nucleated Red Blood Cells % 0.0 Immature Granulocytes # 0.200 H Neutrophils # 9.1 H Lymphocytes # 2.7 Monocytes # 0.8 Eosinophils # 0.5 Basophils # 0.1 Nucleated Red Blood Cells # 0.0 Sodium Level 139 Potassium Level 3.9 Chloride Level 102 Carbon Dioxide Level 33 H Anion Gap 4 L Blood Urea Nitrogen 15 Creatinine 0.87 Est Glomerular Filtrat Rate mL/min Glucose Level 105 Calcium Level 9.5 Exam/Review of Systems Vital Signs Vitals Vital Signs Date Temp Pulse Resp B/P (MAP) Pulse Ox O2 O2 Flow FiO2 Time Delivery Rate 10/02/18 84 18 08:01 10/02/18 2.0 08:01 10/02/18 97.8 133/92 97 07:48 (106) 10/02/18 Nasal 01:32 Cannula 10/01/18 21 15:29 Intake and Output 10/01/18 10/01/18 10/02/18 1515:00 23:00 07:00 IntakeIntake Total 360 ml 240 ml BalanceBalance 360 ml 240 ml Medications Medications Current Medications IV Flush (NS 3 ml) 3 ml PER PROTOCOL IV ; Start 09/25/18 at 12:30 Ondansetron HCl (Zofran Inj) 4 mg Q6H PRN IV NAUSEA AND/OR VOMITING; Start 09/25/18 at 12:30 Hydralazine HCl (Apresoline) 10 mg Q6H PRN IV SBP>160 Last administered on 09/26/18at 07:59; Admin Dose 10 MG; Start 09/25/18 at 14:00 Loratadine (Claritin) 10 mg DAILY PO Last administered on 10/02/18 08:42; Admin Dose 10 MG; Start 09/26/18 at 09:00 Multivitamins Therapeutic (Theragran) 1 tab DAILY PO Last administered on 10/02/18 08:42; Admin Dose 1 TAB; Start 09/26/18 at 09:00 Enoxaparin Sodium (Lovenox) 40 mg DAILY SC Last administered on 10/02/18 08:45; Admin Dose 40 MG; Start 09/26/18 at 09:00 Albuterol/ Ipratropium (Duoneb) 3 ml Q2H RESP THERAPY PRN HHN SHORTNESS OF BREATH Last administered on 10/02/18 01:30; Admin Dose 3 ML; Start 09/25/18 at 14:30 Levothyroxine Sodium (Synthroid) 88 mcg DAILY@06 PO Last administered on 10/02/18 05:46; Admin Dose 88 MCG; Start 09/27/18 at 06:00 Benzonatate (Tessalon) 100 mg TID PRN PO COUGH Last administered on 09/29/18 20:38; Admin Dose 100 MG; Start 09/27/18 at 04:30 Pantoprazole (Protonix Tab) 40 mg DAILY@06 PO Last administered on 10/02/18 05:46; Admin Dose 40 MG; Start 09/28/18 at 06:00 Docusate Sodium (Colace) 100 mg HS PO Last administered on 10/01/18 21:24; Admin Dose 100 MG; Start 09/27/18 at 21:00 Quetiapine Fumarate (Seroquel) 25 mg HS PRN PO AGITATION/ANXIETY Last administered on 10/02/18 00:09; Admin Dose 25 MG; Start 09/27/18 at 11:00 Acetylcysteine (Mucomyst) 2 ml Q8H RESP THERAPY NEB Last administered on 10/02/18 08:00; Admin Dose 2 ML; Start 09/30/18 at 16:00 Olanzapine (Zyprexa) 2.5 mg BID PO Last administered on 10/02/18 08:42; Admin Dose 2.5 MG; Start 10/01/18 at 11:00 Azithromycin (Zithromax) 500 mg DAILY PO Last administered on 10/02/18 08:42; Admin Dose 500 MG; Start 10/01/18 at 11:00 LANDY VARGAS MD Oct 02, 2018 14:59
[2018-10-02 15:03] VITALS: BP 117/62; PULSE 84; RESP 14
== END 2018-10-02 19:20 | DRG 871 ==
LOC: E/R 08:41 → 2NE 11:21
PROVIDERS: ADMIT Internal Medicine; ATTEND Internal Medicine
DX: A41.9 Sepsis, unspecified organism (principal); J96.01 Acute respiratory failure with hypoxia; J18.9 Pneumonia, unspecified organism; N39.0 Urinary tract infection, site not specified; J44.0 Chronic obstructive pulmonary disease with (acute) lower respiratory infection; I10 Essential (primary) hypertension; E03.9 Hypothyroidism, unspecified; Z66 Do not resuscitate; F03.90 Unspecified dementia, unspecified severity, without behavioral disturbance, psychotic disturbance, mood disturbance, and anxiety; E11.9 Type 2 diabetes mellitus without complications; J40 Bronchitis, not specified as acute or chronic; R13.10 Dysphagia, unspecified; R62.7 Adult failure to thrive; B34.9 Viral infection, unspecified; Z79.82 Long term (current) use of aspirin; Z90.12 Acquired absence of left breast and nipple; Z86.73 Personal history of transient ischemic attack (TIA), and cerebral infarction without residual deficits; Z88.2 Allergy status to sulfonamides; Z87.891 Personal history of nicotine dependence
CPT/HCPCS: 36415; 71045; 80048; 80053; 81001; 82150; 83036; 83605; 83690; 83735; 83880; 84100; 84439; 84443; 84484; 85025; 85610; 85730; 87040; 87081; 87086; 87400; 92526; 92610; 93005; 94640; 94644; 94664; 96365; 96366; 96375; 97110; 97161; 97530; C9113; J0360; J0456; J0696; J1630; J1650; J2060; J2543; J2930; J3370; J7030; J7042; J7050; J7512